=== PATIENT | female | born 1990 | race African-American/Black ===

== ENCOUNTER → 2016-09-06 | Outpatient (CLI) | payer MEDICAID ==
[~2016-09-06] MED LIST: IBUP800T23 PO; LOPE2 PO; ZOFR4TAB3 SL
== END ==
LOC: HPND 09:17
PROVIDERS: ATTEND Obstetrics & Gynecology
DX: O34.12 Maternal care for benign tumor of corpus uteri, second trimester (principal); Z36 Encounter for antenatal screening of mother; Z3A.27 27 weeks gestation of pregnancy
CPT/HCPCS: 76816

== ENCOUNTER → 2016-10-13 | Outpatient (CLI) | payer MEDICAID | LOC: HPND 09:53 | PROVIDERS: ATTEND Obstetrics & Gynecology | DX: O34.12 Maternal care for benign tumor of corpus uteri, second trimester (principal) | CPT/HCPCS: 76816 ==

== ENCOUNTER 2017-05-09 07:08 | Emergency (ER) | payer MEDICAID ==
[~2017-05-09] VITALS: Ht 160 cm; Wt 122.0 kg
[2017-05-09 07:10] VITALS: BP 128/87; PULSE 72; RESP 15; TEMP 98.4; O2SAT 99
--- NOTE | 2017-05-09 07:44 | PD ---
HPI Chief Complaint: Injury Time Seen by Provider: 07:22 Travel History International Travel<30 days: No Contact w/Intl Traveler<30days: No Traveled to known affect area: No History of Present Illness HPI 26-year-old female presents to emergency Department with complaint of right hand pain 3 weeks after injuring it after hitting it on a door. Reports numbness and tingling to the fingers in the beginning of the injury, but not now. Denies decreased range of motion, loss of sensation, decreased strength to the affected extremity and hand. Took Ibuprofen for symptom management when it first happened. Symptoms are mild in severity. Has no medical complaints. Allergies to penicillin. No other modifying factors or associated signs and symptoms. PFSH Past Medical History Medical History: Denies Significant Hx Diminished Hearing: No ?: Not LMP: 04/08 Past Surgical History Surgical History: No Previous Surgery Cholecystectomy: Yes Tonsillectomy: Yes Social History Alcohol Use: Yes (SOCIALLY) Tobacco Use: No Substance Use: No Allergies-Medications (Allergen,Severity, Reaction): Coded Allergies: penicillin G (Unverified Allergy, Unknown, HIVES, 05/09/17) Reported Meds & Prescriptions Reported Meds & Active Scripts Active Ibuprofen 800 Mg Tab 800 Mg PO Q6HR PRN Review of Systems Except as stated in HPI: all other systems reviewed are Neg Physical Exam Narrative GENERAL: Well-nourished, well-developed black female patient, in no acute distress SKIN: Warm and dry. HEAD: Atraumatic. Normocephalic. EYES: Pupils equal and round. No scleral icterus. No injection or drainage. ENT: Mucosa pink and moist. Airway patent. NECK: Trachea midline. CARDIOVASCULAR: Regular rate. RESPIRATORY: No accessory muscle use. GASTROINTESTINAL: Obese. MUSCULOSKELETAL: Right hand with tenderness on palpation over the metacarpal area of the third and fourth fingers; hand is without edema, ecchymosis, erythema. Right upper extremity is supple and non-tense with 2+ radial pulse and sensory intact. No obvious deformities. No clubbing. No cyanosis. NEUROLOGICAL: Awake and alert. Oriented 3. No obvious cranial nerve deficits. Motor grossly within normal limits. Normal speech. PSYCHIATRIC: Appropriate mood and affect; insight and judgment normal. Data Data Last Documented VS Vital Signs Date Time Temp Pulse Resp B/P (MAP) Pulse Ox O2 Delivery O2 Flow Rate FiO2 05/09/17 07:10 98.4 72 15 128/87 (101) 99 Orders Orders Hand, Complete ([id number]) (05/09/17 07:20) MDM Medical Decision Making Medical Screen Exam Complete: Yes Emergency Medical Condition: Yes Medical Record Reviewed: Yes Differential Diagnosis Hand sprain, hand fracture, hand contusion, hand injury Narrative Course 26-year-old female with right hand injury 3 weeks. I offered the patient pain medication in the ER and she declined. Right hand x-ray ordered. 0916: Right hand x-ray with no acute findings. I offered the patient an Brian bandage and she declined. Ibuprofen prescribed for home. Instructed patient to follow up with primary care provider. Patient verbalizes understanding and agreement with treatment plan. Patient is medically cleared and stable for discharge. Discussed reasons to return to the emergency department. Patient agrees with treatment plan. The patients vital signs are stable and the patient is stable for outpatient follow-up and treatment. Patient discharged home, stable and in no acute distress. Diagnosis Primary Impression: Injury of right hand Qualified Codes: S69.91XA - Unspecified injury of right wrist, hand and finger (s), initial encounter Referrals: [facility] Primary Care Physician Patient Instructions: General Instructions, Hand Sprain (ED) Departure Forms: Tests/Procedures, Work Release Enter return to work date: May 10, 2017 Additional Instructions: Tylenol or ibuprofen as directed and as needed to reduce pain Rest, ice, compress, and elevate extremity to decrease pain and inflammation Brian wrap for support Avoid aggravating activity; increase activity as tolerated Follow-up with primary care provider Return to the emergency department immediately with worsening symptoms Med/Other Pt SpecificInfo: Prescription(s) given Scripts Ibuprofen (Ibuprofen) 800 Mg Tab 800 MG PO Q6HR Y for PAIN, #30 TAB 0 Refills Prov: Sarah Perez 05/09/17 Disposition: 01 DISCHARGE HOME Condition: Stable Sarah Perez May 09, 2017 07:44
[2017-05-09] MEDS ORDERED: IBUP800T23 PO (07:59)
--- NOTE | 2017-05-09 09:12 | RADRPT ---
EXAM DATE/TIME: 05/09/2017 08:01 [facility] COMPARISON: No previous studies available for comparison. INDICATIONS : Pain over all knuckles x3 weeks from hitting wall. MEDICAL HISTORY : None. SURGICAL HISTORY : None. ENCOUNTER: Initial ACUITY: 3 weeks PAIN SCORE: 9/10 LOCATION: Right hand. FINDINGS: Three view examination of the right hand demonstrates no soft tissue swelling, dislocation, or fractu re. The carpal bones appear intact. The interphalangeal and metacarpophalangeal joints are intact. Bony mineralization is normal. CONCLUSION: 1. There is no evidence of acute fracture. Richard Mcgee MD on May 09, 2017 at 9:10 Board Certified Radiologist. This report was verified electronically.
== END 2017-05-09 09:29 | disposition home or self-care (01) ==
LOC: NEPK 07:08
DX: S69.91XA Unspecified injury of right wrist, hand and finger(s), initial encounter (principal); W23.0XXA Caught, crushed, jammed, or pinched between moving objects, initial encounter; Z88.0 Allergy status to penicillin
CPT/HCPCS: 73130; 99283

== ENCOUNTER 2017-07-12 17:23 | Observation (INO) | payer MEDICAID ==
[~2017-07-12] VITALS: Ht 160 cm; Wt 120.0 kg
[2017-07-12 17:23] VITALS: BP 121/81; PULSE 79; RESP 16; TEMP 99.1; O2SAT 99
[~2017-07-12 17:23] MED LIST changes: +IBUP1TAB7 PO; -IBUP800T23 PO; -LOPE2 PO; -ZOFR4TAB3 SL
[2017-07-12 19:41] LABS: BASOPHIL % 0.4 % (0.0-2.0); EOSINOPHIL # 0.1 TH/MM3 (0-0.4); EOSINOPHIL % 0.9 % (0.0-4.0); HEMATOCRIT 35.7 % (35.0-46.0); HEMO FLAGS DIFF FINAL; LYMPH % 34.9 % (9.0-44.0); LYMPHOCYTE # 2.5 TH/MM3 (1.0-4.8); MEAN CELL VOLUME 83.3 FL (80.0-100.0); MEAN CORPUSCULAR HEMOGLOBIN 26.5 PG (27.0-34.0); MEAN CORPUSCULAR HGB CONC 31.9 % (32.0-36.0); MONO % 7.3 % (0.0-8.0); NEUT % 56.5 % (16.0-70.0); PLATELET COUNT 335 TH/MM3 (150-450); RED BLOOD COUNT 4.28 MIL/MM3 (4.00-5.30); RED CELL DISTRIBUTION WIDTH 14.8 % (11.6-17.2)
[2017-07-12 19:45] LABS: BLOOD, URINE NEG (NEG); COMMENT (UR) CULT NOT INDICATED; CULTURE IF INDICATED CULT NOT INDICATED; GLUCOSE,URINE NEG (NEG); KETONE, URINE NEG (NEG); MUCUS URINE FEW /lpf (OCC); NITRITE,URINE NEG (NEG); PH, URINE 8.5 (5.0-8.5); SQUAMOUS EPITHELIAL CELL URINE 5 /hpf (0-5); URINE COLOR YELLOW (YELLW/STRAW)
[2017-07-12 19:55] LABS: ANION GAP 7 MEQ/L (5-15); AST (GOT) 182 U/L (15-37); BICARBONATE 27.8 MEQ/L (21.0-32.0); BLOOD UREA NITROGEN 9 MG/DL (7-18); CHLORIDE 104 MEQ/L (98-107); GLOMERULAR FILTRATION RATE 153 ML/MIN (>89); POTASSIUM 3.9 MEQ/L (3.5-5.1); SODIUM (NA) 139 MEQ/L (136-145)
[2017-07-12 19:56] LABS: ALT (GPT) 103 U/L (10-53)
[2017-07-12 19:59] LABS: ALKALINE PHOSPHATASE 180 U/L (45-117); TOTAL BILIRUBIN ADULT 1.5 MG/DL (0.2-1.0)
[2017-07-12] MEDS ORDERED: MORPHINE SULFATE 4 MG/ML INJ IV PUSH ONE (20:30)
--- NOTE | 2017-07-12 20:30 | PD ---
HPI Chief Complaint: Abdominal Pain Time Seen by Provider: 20:18 Travel History International Travel<30 days: No Contact w/Intl Traveler<30days: No Traveled to known affect area: No History of Present Illness HPI 26yo F with PSH of cholecystectomy in 2011 presents to the ED with c/o epigastric abdominal pain that started around 10am today. Had one episode of NBNB vomiting but no longer nauseous now. States pain is sharp, intermittent and radiates to mid back. Denies any fever, chest pain, sob, dysuria, hematuria , diarrhea, vaginal bleeding or discharge. PFSH Past Medical History Diminished Hearing: No ?: Not LMP: 06/18/17 Past Surgical History Cholecystectomy: Yes Tonsillectomy: Yes Social History Alcohol Use: Yes (SOCIALLY) Tobacco Use: No Substance Use: No Allergies-Medications (Allergen,Severity, Reaction): Coded Allergies: penicillin G (Unverified Allergy, Unknown, HIVES, 07/12/17) Reported Meds & Prescriptions Reported Meds & Active Scripts Active Review of Systems Except as stated in HPI: all other systems reviewed are Neg Physical Exam Narrative GENERAL: 26yo F in mild distress. SKIN: Focused skin assessment warm/dry. HEAD: Atraumatic. Normocephalic. EYES: Pupils equal and round. No scleral icterus. No injection or drainage. ENT: No nasal bleeding or discharge. Mucous membranes pink and moist. NECK: Trachea midline. No JVD. CARDIOVASCULAR: Regular rate and rhythm. No murmur appreciated. RESPIRATORY: No accessory muscle use. Clear to auscultation. Breath sounds equal bilaterally. GASTROINTESTINAL: Abdomen soft, +Epigastric ttp. No rebound tenderness or guarding. MUSCULOSKELETAL: No obvious deformities. No clubbing. No cyanosis. No edema. NEUROLOGICAL: Awake and alert. No obvious cranial nerve deficits. Motor grossly within normal limits. Normal speech. PSYCHIATRIC: Appropriate mood and affect; insight and judgment normal. Data Data Last Documented VS Vital Signs Date Time Temp Pulse Resp B/P (MAP) Pulse Ox O2 Delivery O2 Flow Rate FiO2 07/13/17 00:00 97.6 64 18 119/81 (94) 98 07/12/17 22:07 Room Air Orders Orders Complete Blood Count With Diff (07/12/17 17:47) Comprehensive Metabolic Panel (07/12/17 17:47) Lipase (07/12/17 17:47) Urinalysis - C+S If Indicated (07/12/17 17:47) Us Abdomen Gallbladder (07/12/17 ) NPO (07/12/17 20:30) Morphine Inj (Morphine Inj) (07/12/17 20:30) Consult Gastroenterology (07/12/17 ) Ed Urine Pregnancytest Poc (07/12/17 20:40) Admit To Inpatient (07/12/17 ) Vital Signs (Adult) Q4H (07/12/17 20:45) Activity Oob With Assistance (07/12/17 20:45) Automatic Quilling Machine Operator / Telemetry .CONTINUOUS (07/12/17 20:45) Diet Npo (07/13/17 Breakfast) Sodium Chlor 0.9% 1000 Ml Inj (Ns 1000 M (07/12/17 20:45) Sodium Chloride 0.9% Flush (Ns Flush) (07/12/17 20:45) Sodium Chloride 0.9% Flush (Ns Flush) (07/12/17 21:00) Ondansetron Inj (Zofran Inj) (07/12/17 20:45) Comprehensive Metabolic Panel (07/13/17 06:00) Complete Blood Count With Diff (07/13/17 06:00) Case Management Consult (07/12/17 20:45) Naloxone Inj (Narcan Inj) (07/12/17 20:45) Inpatient Certification (07/12/17 ) Morphine Inj (Morphine Inj) (07/12/17 20:45) Admit Order (Ed Use Only) (07/12/17 20:58) Patient Transfer (07/12/17 ) Place In Observation (07/13/17 ) Labs Laboratory Tests Test 07/12/17 18:40 07/12/17 18:50 Urine Color YELLOW Urine Turbidity HAZY Urine pH 8.5 Urine Specific [place] 1.027 Urine Protein 30 mg/dL Urine Glucose (UA) NEG mg/dL Urine Ketones NEG mg/dL Urine Occult Blood NEG Urine Nitrite NEG Urine Bilirubin NEG Urine Urobilinogen 2.0 MG/DL Urine Leukocyte Esterase NEG Urine RBC 2 /hpf Urine WBC 2 /hpf Urine Squamous Epithelial Cells 5 /hpf Urine Mucus FEW /lpf Microscopic Urinalysis Comment CULT NOT INDICATED White Blood Count 7.0 TH/MM3 Red Blood Count 4.28 MIL/MM3 Hemoglobin 11.4 GM/DL Hematocrit 35.7 % Mean Corpuscular Volume 83.3 FL Mean Corpuscular Hemoglobin 26.5 PG Mean Corpuscular Hemoglobin Concent 31.9 % Red Cell Distribution Width 14.8 % Platelet Count 335 TH/MM3 Mean Platelet Volume 8.5 FL Neutrophils (%) (Auto) 56.5 % Lymphocytes (%) (Auto) 34.9 % Monocytes (%) (Auto) 7.3 % Eosinophils (%) (Auto) 0.9 % Basophils (%) (Auto) 0.4 % Neutrophils # (Auto) 4.0 TH/MM3 Lymphocytes # (Auto) 2.5 TH/MM3 Monocytes # (Auto) 0.5 TH/MM3 Eosinophils # (Auto) 0.1 TH/MM3 Basophils # (Auto) 0.0 TH/MM3 CBC Comment DIFF FINAL Differential Comment Blood Urea Nitrogen 9 MG/DL Creatinine 0.58 MG/DL Random Glucose 93 MG/DL Total Protein 7.4 GM/DL Albumin 3.4 GM/DL Calcium Level 8.9 MG/DL Alkaline Phosphatase 180 U/L Aspartate Amino Transf (AST/SGOT) 182 U/L Alanine Aminotransferase (ALT/SGPT) 103 U/L Total Bilirubin 1.5 MG/DL Sodium Level 139 MEQ/L Potassium Level 3.9 MEQ/L Chloride Level 104 MEQ/L Carbon Dioxide Level 27.8 MEQ/L Anion Gap 7 MEQ/L Estimat Glomerular Filtration Rate 153 ML/MIN Lipase 118 U/L MDM Medical Decision Making Medical Screen Exam Complete: Yes Emergency Medical Condition: Yes Differential Diagnosis Choledocholithiasis vs. cholangitis vs. pancreatitis vs. gastritis Narrative Course 26yo F with epigastric abdominal pain that radiates to the back. States it feels like her gallstones but she had her gallbladder remove in 2011. Labs reviewed, no leukocytosis. Elevated bilirubin at 1.5, elevated AST/ALT 182/ 103. Alk phos elevated at 180. Lipase normal. UA negative. Discussed with Dr. Lorenzo who wants to keep her NPO. Recommends admission and also to obtain US and he will see the patient. Discussed with Dr. Yao and accepted pt to her service. Diagnosis Primary Impression: Transaminitis Admitting Information Admitting Physician Requests: Observation Scripts Ondansetron (Zofran) 8 Mg Tab 8 MG PO TID for Nausea/Vomiting, #30 TAB 0 Refills Prov: Grieper,Derrek M. DO 07/14/17 Angelica Agosto DO Jul 12, 2017 20:30
[2017-07-12] MEDS ORDERED: MORPHINE SULFATE 2 MG/ML INJ IV PUSH PRN (20:45)
[2017-07-12] MEDS ORDERED: NALOXONE HCL 0.4 MG/ML AMP IV PUSH PRN (20:45)
[2017-07-12] MEDS ORDERED: SODIUM CHLORIDE 0.9% FLUSH 10 ML FLUSH IV FLUSH PRN (20:45)
[2017-07-12] MEDS: ONDANSETRON HCL 4 MG/2 ML VIAL IVP PRN (20:55)
[2017-07-12] MEDS: SODIUM CHLORIDE 0.9% FLUSH 10 ML FLUSH IV FLUSH SCH (21:00)
[2017-07-12] MEDS: SODIUM CHLOR 0.9% 1000 ML INJ 1,000 ML IV SCH (21:01)
--- NOTE | 2017-07-12 22:00 | RADRPT ---
EXAM DATE/TIME: 07/12/2017 21:30 [facility] COMPARISON: No previous studies available for comparison. INDICATIONS : Right upper quadrant pain. MEDICAL HISTORY : . Right upper quadrant pain. SURGICAL HISTORY : Tonsillectomy. Cholecystectomy. ENCOUNTER: Initial ACUITY: 1 day PAIN SCORE: 2/10 LOCATION: Right upper quadrant MEASUREMENTS: LIVER: 17.8 cm length COMMON DUCT: 6 mm RIGHT KIDNEY: 11.1 x 6.7 x 4.8 cm FINDINGS: LIVER: Normal echotexture without focal lesion or ductal dilatation. COMMON DUCT: No intraluminal mass or stone visualized. GALLBLADDER: Contains no stones, demonstrates no wall thickening or pericholecystic fluid. PANCREAS: The visualized portions are within normal limits. RIGHT KIDNEY: No evidence of hydronephrosis, stone, or mass. CONCLUSION: 1. The common bile duct is at the upper range of normal in terms of caliber. Otherwise, unremarkable exam. Binu Navarro Jr., MD on July 12, 2017 at 21:56 Board Certified Radiologist. This report was verified electronically.
[2017-07-12 22:07] VITALS: BP 118/78; PULSE 80; RESP 18; O2SAT 98
--- NOTE | 2017-07-12 23:33 | HHI.HP ---
[facility] No Primary Care Physician Admission Diagnosis possible choledocholithiasis Diagnoses: Chief Complaint: Abdominal pain Travel History International Travel<30 Days: No Contact w/Intl Traveler <30 Da: No Traveled to Known Affected Are: No History of Present Illness 26-year-old female with no medical history presented to the ED with complaints of abdominal pain. Patient states the abdominal pain began today and is a 9 out of 10 sharp pain in her right upper quadrant that radiates to the back with associated vomiting. She states eating or drinking does make it worse, but the pain medicine that was given has helped. She denies any chest pain, shortness of breath, fever or chills Review of Systems Except as stated in HPI: all other systems reviewed are Neg Past Family Social History Past Medical History Denies any medical history Past Surgical History cholecystectomy Tonsillectomy Reported Medications Reported Meds & Active Scripts Active Allergies: Coded Allergies: penicillin G (Unverified Allergy, Unknown, HIVES, 07/12/17) Active Ordered Medications Current Medications Medications (Trade) Dose Ordered Sig/José Route Start Time Stop Time Status Last Admin Sodium Chloride 1,000 ml @ 100 mls/hr Q10H IV 07/12/17 20:45 07/12/17 21:01 (NS Flush) 2 ml UNSCH PRN IV FLUSH 07/12/17 20:45 (NS Flush) 2 ml BID IV FLUSH 07/12/17 21:00 (Zofran Inj) 4 mg Q6H PRN IVP 07/12/17 20:45 07/12/17 20:55 (Narcan Inj) 0.4 mg UNSCH PRN IV PUSH 07/12/17 20:45 (Morphine Inj) 2 mg Q3H PRN IV PUSH 07/12/17 20:45 Family History Maternal grandma: breast cancer Social History Tobacco use: Denies Alcohol use: Socially Illicit drug use: Marijuana Physical Exam Vital Signs Vital Signs Date Time Temp Pulse Resp B/P (MAP) Pulse Ox O2 Delivery O2 Flow Rate FiO2 07/12/17 22:07 80 18 118/78 (91) 98 Room Air 07/12/17 22:07 07/12/17 17:23 99.1 79 16 121/81 (94) 99 Room Air Physical Exam GENERAL: This is a well-nourished, obese patient, in no apparent distress. SKIN: No rashes, ecchymoses or lesions. Cool and dry. HEAD: Atraumatic. Normocephalic. EYES: Pupils equal round and reactive. Extraocular motions intact. ENT: Nose without bleeding, purulent drainage or septal hematoma. Airway patent. NECK: Trachea midline. No JVD CARDIOVASCULAR: Regular rate and rhythm without murmurs, gallops, or rubs. RESPIRATORY: Clear to auscultation. Breath sounds equal bilaterally. No wheezes , rales, or rhonchi. GASTROINTESTINAL: Abdomen soft, RUQ tenderness, nondistended. MUSCULOSKELETAL: Extremities without clubbing, cyanosis, or edema. No calf tenderness. NEUROLOGICAL: Awake and alert. Motor and sensory grossly within normal limits. Normal speech. Laboratory Laboratory Tests Test 07/12/17 18:40 07/12/17 18:50 Urine Color YELLOW Urine Turbidity HAZY Urine pH 8.5 Urine Specific [place] 1.027 Urine Protein 30 Urine Glucose (UA) NEG Urine Ketones NEG Urine Occult Blood NEG Urine Nitrite NEG Urine Bilirubin NEG Urine Urobilinogen 2.0 Urine Leukocyte Esterase NEG Urine RBC 2 Urine WBC 2 Urine Squamous Epithelial Cells 5 Urine Mucus FEW Microscopic Urinalysis Comment CULT NOT INDICATED White Blood Count 7.0 Red Blood Count 4.28 Hemoglobin 11.4 Hematocrit 35.7 Mean Corpuscular Volume 83.3 Mean Corpuscular Hemoglobin 26.5 Mean Corpuscular Hemoglobin Concent 31.9 Red Cell Distribution Width 14.8 Platelet Count 335 Mean Platelet Volume 8.5 Neutrophils (%) (Auto) 56.5 Lymphocytes (%) (Auto) 34.9 Monocytes (%) (Auto) 7.3 Eosinophils (%) (Auto) 0.9 Basophils (%) (Auto) 0.4 Neutrophils # (Auto) 4.0 Lymphocytes # (Auto) 2.5 Monocytes # (Auto) 0.5 Eosinophils # (Auto) 0.1 Basophils # (Auto) 0.0 CBC Comment DIFF FINAL Differential Comment Blood Urea Nitrogen 9 Creatinine 0.58 Random Glucose 93 Total Protein 7.4 Albumin 3.4 Calcium Level 8.9 Alkaline Phosphatase 180 Aspartate Amino Transf (AST/SGOT) 182 Alanine Aminotransferase (ALT/SGPT) 103 Total Bilirubin 1.5 Sodium Level 139 Potassium Level 3.9 Chloride Level 104 Carbon Dioxide Level 27.8 Anion Gap 7 Estimat Glomerular Filtration Rate 153 Lipase 118 Result Diagram: 07/12/17184907/12/171849 Imaging Last Impressions Gall Bladder Ultrasound 07/12/17 0000 Signed Impressions: Service Date/Time: Wednesday, July 12, 2017 21:30 - CONCLUSION: 1. The common bile duct is at the upper range of normal in terms of caliber. Otherwise , unremarkable exam. MD Clif Montgomery Jr. VTE Risk Assessment Clif VTE Risk Assessment: No/Low Risk (score <= 1) Caprini Risk Assessment Model Point Value = 1 Point Value = 2 Point Value = 3 Point Value = 5 Age 41-60 Minor surgery BMI > 25 kg/m2 Swollen legs Varicose veins or History of unexplained or recurrent spontaneous Oral contraceptives or hormone replacement Sepsis (< 1 month) Serious lung disease, including pneumonia (< 1 month) Abnormal pulmonary function Acute myocardial infarction Congestive heart failure (< 1 month) History of inflammatory bowel disease Medical patient at bed rest Age 61-74 Arthroscopic surgery Major open surgery (> 45 min) Laparoscopic surgery (> 45 min) Malignancy Confined to bed (> 72 hours) Immobilizing plaster cast Central venous access Age >= 75 History of VTE Family history of VTE Factor V Leiden Prothrombin [id number] Lupus anticoagulant Anticardiolipin antibodies Elevated serum homocysteine Heparin-induced thrombocytopenia Other congenital or acquired thrombophilia Stroke (< 1 month) Elective arthroplasty Hip, pelvis, or leg fracture Acute spinal cord injury (< 1 month) Prophylaxis Regimen Total Risk Factor Score Risk Level Prophylaxis Regimen 0-1 Low Early ambulation 2 Moderate Order ONE of the following: *Sequential Compression Device (SCD) *Heparin 5000 units SQ BID 3-4 Higher Order ONE of the following medications: *Heparin 5000 units SQ TID *Enoxaparin/Lovenox 40 mg SQ daily (WT < 150 kg, CrCl > 30 mL/min) *Enoxaparin/Lovenox 30 mg SQ daily (WT < 150 kg, CrCl > 10-29 mL/min) *Enoxaparin/Lovenox 30 mg SQ BID (WT < 150 kg, CrCl > 30 mL/min) AND/OR *Sequential Compression Device (SCD) 5 or more Highest Order ONE of the following medications: *Heparin 5000 units SQ TID (Preferred with Epidurals) *Enoxaparin/Lovenox 40 mg SQ daily (WT < 150 kg, CrCl > 30 mL/min) *Enoxaparin/Lovenox 30 mg SQ daily (WT < 150 kg, CrCl > 10-29 mL/min) *Enoxaparin/Lovenox 30 mg SQ BID (WT < 150 kg, CrCl > 30 mL/min) AND *Sequential Compression Device (SCD) Assessment and Plan Problem List: (1) Choledocholithiasis ICD Code: K80.50 - Calculus of bile duct without cholangitis or cholecystitis without obstruction (2) Transaminitis ICD Code: R74.0 - Nonspecific elevation of levels of transaminase and lactic acid dehydrogenase [LDH] Assessment and Plan 26-year-old female with no medical history presented to the ED with complaints of abdominal pain. Transaminitis , suspect Choledocholithiasis Gallbladder ultrasound reviewed and shows common bile duct is in the upper range of normal. AST: 182 ALT: 103 -Consult gastroenterology for recommendations, possible MRCP -Continue IVF -Nothing by mouth -Pain management with IV morphine DVT prophylaxis: SCDs Discussed Condition With Patient and RN Physician Certification 2 Midnight Certification Type: Admission for Inpatient Services Order for Inpatient Services The services are ordered in accordance with Medicare regulations or non- Medicare payer requirements, as applicable. In the case of services not specified as inpatient-only, they are appropriately provided as inpatient services in accordance with the 2-midnight benchmark. Estimated LOS (days): 2 days is the estimated time the patient will need to remain in the hospital, assuming treatment plan goals are met and no additional complications. Post-Hospital Plan: Delores Collazo Jul 12, 2017 23:33
[2017-07-13] VITALS (9 sets, daily range): BP systolic 100–119; BP diastolic 64–81; PULSE 60–75; RESP 15–24; TEMP 96.7–98.5; O2SAT 97–99
[2017-07-13] MEDS: SODIUM CHLOR 0.9% 1000 ML INJ 1,000 ML IV SCH ×2 (06:45→09:16)
[2017-07-13 08:46] LABS: AUTOMATED NEUTROPHIL # 2.3 TH/MM3 (1.8-7.7); BASOPHIL % 0.4 % (0.0-2.0); EOSINOPHIL # 0.1 TH/MM3 (0-0.4); EOSINOPHIL % 1.9 % (0.0-4.0); HEMATOCRIT 34.4 % (35.0-46.0); HEMO FLAGS DIFF FINAL; LYMPH % 44.6 % (9.0-44.0); LYMPHOCYTE # 2.3 TH/MM3 (1.0-4.8); MEAN CELL VOLUME 83.4 FL (80.0-100.0); MEAN CORPUSCULAR HEMOGLOBIN 26.9 PG (27.0-34.0); MEAN CORPUSCULAR HGB CONC 32.3 % (32.0-36.0); MONO % 9.5 % (0.0-8.0); NEUT % 43.6 % (16.0-70.0); PLATELET COUNT 291 TH/MM3 (150-450); RED BLOOD COUNT 4.12 MIL/MM3 (4.00-5.30); RED CELL DISTRIBUTION WIDTH 14.4 % (11.6-17.2); WHITE BLOOD COUNT 5.2 TH/MM3 (4.0-11.0)
[2017-07-13] MEDS: SODIUM CHLORIDE 0.9% FLUSH 10 ML FLUSH IV FLUSH SCH ×2 (09:00→20:25)
[2017-07-13 09:07] LABS: ANION GAP 7 MEQ/L (5-15); AST (GOT) 323 U/L (15-37); BICARBONATE 25.5 MEQ/L (21.0-32.0); BLOOD UREA NITROGEN 7 MG/DL (7-18); CHLORIDE 107 MEQ/L (98-107); GLOMERULAR FILTRATION RATE 150 ML/MIN (>89); POTASSIUM 3.9 MEQ/L (3.5-5.1); SODIUM (NA) 139 MEQ/L (136-145)
[2017-07-13 09:08] LABS: ALT (GPT) 202 U/L (10-53)
[2017-07-13] MEDS: ONDANSETRON HCL 4 MG/2 ML VIAL IVP PRN (09:08)
[2017-07-13 09:10] LABS: ALKALINE PHOSPHATASE 231 U/L (45-117); TOTAL BILIRUBIN ADULT 3.2 MG/DL (0.2-1.0)
--- NOTE | 2017-07-13 11:20 | RADRPT ---
EXAM DATE/TIME: 07/13/2017 10:17 [facility] COMPARISON: No previous studies available for comparison. INDICATIONS : Pain. MEDICAL HISTORY : None. SURGICAL HISTORY : Cholecystectomy. Tonsillectomy. ENCOUNTER: Initial ACUITY: 2 day PAIN SCORE: 4/10 LOCATION: Right upper quadrant TECHNIQUE: Multiplanar, multisequence magnetic resonance imaging of the abdomen was performed. High-resolution 3D dataset was utilized to reconstruct maximum-intensity projection (MIP) images. FINDINGS: INTRAHEPATIC BILE DUCTS: Within normal limits. No significant anatomical variant is present. EXTRAHEPATIC BILE DUCTS: The common bile duct measures 5.6 mm No stone or filling defect is identified. GALLBLADDER: Status post cholecystectomy LIVER: Normal size and signal intensity. No concerning liver lesion is identified on this non-contrast exam. PANCREAS: The main pancreatic duct is normal in size. There is no significant anatomical variant. Signal inte nsity is within normal limits. No mass is visualized on this non-contrast exam. OTHER: The remaining visualized structures demonstrate no acute abnormality on this non-contrast exam. CONCLUSION: 1. Status post cholecystectomy. 2. No evidence of intra-or extra hepatic biliary duct dilatation. 3. No evidence of choledocholithiasis. 4. No acute process. Spike Loza MD on July 13, 2017 at 11:16 Board Certified Radiologist. This report was verified electronically.
--- NOTE | 2017-07-13 11:23 | PD.CONS ---
HPI History of Present Illness This is a 26 year old female with hx gallstones s/p cholecystectomy who presented with abd pain that started yesterday. THe pain is in the epigastrium and radiates straight through to the back. she did have 1 episode of nausea and nonbloody emesis. SHe had similar pain when she had gallstones. Denies fever, diarrhea, blood in stool, dark tarry stool. Never had colonoscopy or EGD. (Ginger Abbasi) PFSH Past Medical History cholelithiasis Past Surgical History cholecystectomy Tonsillectomy (Ginger Abbasi) Coded Allergies: penicillin G (Unverified Allergy, Unknown, HIVES, 07/12/17) Family History Maternal grandma: breast cancer Social History Tobacco use: Denies Alcohol use: Socially Illicit drug use: Marijuana (Ginger Abbasi) Review of Systems Constitutional: DENIES: Fever Eyes: DENIES: Photosensitivity Ears, nose, mouth, throat: DENIES: Hearing loss Respiratory: DENIES: Hemoptysis Cardiovascular: DENIES: Chest pain Gastrointestinal: COMPLAINS OF: Abdominal pain, Nausea, Vomiting, DENIES: Black stools, Bloody stools, Constipation, Diarrhea, Hematemesis Genitourinary: DENIES: Hematuria Musculoskeletal: DENIES: Joint Swelling Integumentary: DENIES: Jaundice Hematologic/lymphatic: DENIES: Bruising Neurologic: DENIES: Abnormal gait Psychiatric: DENIES: Confusion (Ginger Abbasi) GI Exam Vitals I&O Vital Signs Date Time Temp Pulse Resp B/P (MAP) Pulse Ox O2 Delivery O2 Flow Rate FiO2 07/13/17 07:11 96.8 62 18 103/65 (78) 97 07/13/17 03:54 65 07/13/17 03:26 98.4 73 15 106/69 (81) 98 07/13/17 00:00 97.6 64 18 119/81 (94) 98 07/13/17 00:00 62 07/12/17 22:07 80 18 118/78 (91) 98 Room Air 07/12/17 22:07 07/12/17 17:23 99.1 79 16 121/81 (94) 99 Room Air Imaging Last Impressions Gall Bladder Ultrasound 07/12/17 0000 Signed Impressions: Service Date/Time: Wednesday, July 12, 2017 21:30 - CONCLUSION: 1. The common bile duct is at the upper range of normal in terms of caliber. Otherwise , unremarkable exam. Binu Navarro Jr., MD Laboratory Test 07/12/17 18:40 07/12/17 18:50 07/13/17 07:51 Urine Color YELLOW Urine Turbidity HAZY Urine pH 8.5 Urine Specific [place] 1.027 Urine Protein 30 mg/dL Urine Glucose (UA) NEG mg/dL Urine Ketones NEG mg/dL Urine Occult Blood NEG Urine Nitrite NEG Urine Bilirubin NEG Urine Urobilinogen 2.0 MG/DL Urine Leukocyte Esterase NEG Urine RBC 2 /hpf Urine WBC 2 /hpf Urine Squamous Epithelial Cells 5 /hpf Urine Mucus FEW /lpf Microscopic Urinalysis Comment CULT NOT INDICATED White Blood Count 7.0 TH/MM3 5.2 TH/MM3 Red Blood Count 4.28 MIL/MM3 4.12 MIL/MM3 Hemoglobin 11.4 GM/DL 11.1 GM/DL Hematocrit 35.7 % 34.4 % Mean Corpuscular Volume 83.3 FL 83.4 FL Mean Corpuscular Hemoglobin 26.5 PG 26.9 PG Mean Corpuscular Hemoglobin Concent 31.9 % 32.3 % Red Cell Distribution Width 14.8 % 14.4 % Platelet Count 335 TH/MM3 291 TH/MM3 Mean Platelet Volume 8.5 FL 8.5 FL Neutrophils (%) (Auto) 56.5 % 43.6 % Lymphocytes (%) (Auto) 34.9 % 44.6 % Monocytes (%) (Auto) 7.3 % 9.5 % Eosinophils (%) (Auto) 0.9 % 1.9 % Basophils (%) (Auto) 0.4 % 0.4 % Neutrophils # (Auto) 4.0 TH/MM3 2.3 TH/MM3 Lymphocytes # (Auto) 2.5 TH/MM3 2.3 TH/MM3 Monocytes # (Auto) 0.5 TH/MM3 0.5 TH/MM3 Eosinophils # (Auto) 0.1 TH/MM3 0.1 TH/MM3 Basophils # (Auto) 0.0 TH/MM3 0.0 TH/MM3 CBC Comment DIFF FINAL DIFF FINAL Differential Comment Blood Urea Nitrogen 9 MG/DL 7 MG/DL Creatinine 0.58 MG/DL 0.59 MG/DL Random Glucose 93 MG/DL 98 MG/DL Total Protein 7.4 GM/DL 6.8 GM/DL Albumin 3.4 GM/DL 3.2 GM/DL Calcium Level 8.9 MG/DL 8.8 MG/DL Alkaline Phosphatase 180 U/L 231 U/L Aspartate Amino Transf (AST/SGOT) 182 U/L 323 U/L Alanine Aminotransferase (ALT/SGPT) 103 U/L 202 U/L Total Bilirubin 1.5 MG/DL 3.2 MG/DL Sodium Level 139 MEQ/L 139 MEQ/L Potassium Level 3.9 MEQ/L 3.9 MEQ/L Chloride Level 104 MEQ/L 107 MEQ/L Carbon Dioxide Level 27.8 MEQ/L 25.5 MEQ/L Anion Gap 7 MEQ/L 7 MEQ/L Estimat Glomerular Filtration Rate 153 ML/MIN 150 ML/MIN Lipase 118 U/L Physical Examination HEENT: PERRL; normocephalic; atraumatic; no jaundice. CHEST: CTA CARDIAC: RRR ABDOMEN: Soft, obese, nontender; no hepatosplenomegaly; bowel sounds are present in all four quadrants. EXTREMITIES: No clubbing, cyanosis, or edema. SKIN: Normal; no rash; no jaundice. 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 (Ginger Abbasi) Assessment and Plan Plan ASSESSMENT - elev LFTs, abd pain - epigastric pain radiating to back, LFTs elevated obstructive pattern. US showed CBD dilated upper limits normal, pt is s/p cholecystectomy. MRCP neg. She says her pain is somewhat improved from yesterday. She could have passed stone. will monitor LFTs, get liver w/u to r/o other cause elevation PLAN - liver w/u - monitor LFTs - clear liquid diet - supportive care - further recs to follow This pt seen by myself and Dr Baer and this note is written on his behalf (Ginger Abbasi) Plan Patient was seen and examined, agree with above note, most likely passed a stone , pain improved significantly, no nausea or vomiting now, we have to wait and recheck liver function tests tomorrow, if elevated we might need to consider ERCP (Casey Baer MD) Ginger Abbasi Jul 13, 2017 11:23 Casey Baer MD Jul 13, 2017 14:33
--- NOTE | 2017-07-13 16:09 | HHI.PR ---
Subjective Remarks 26-year-old female with no medical history presented to the ED with complaints of abdominal pain. Patient states the abdominal pain began today and is a 9 out of 10 sharp pain in her right upper quadrant that radiates to the back with associated vomiting. She states eating or drinking does make it worse, but the pain medicine that was given has helped. She denies any chest pain, shortness of breath, fever or chills 11-9 SEEN BY GI AND HAD MRCP IF LABS BETTER AND NO PAIN HOPEFULLY HOME TOMORROW DW RN AND PT SEEN WITH FEMALE RN WOOLEN SUITING SHRINKER IN THE ROOM AM LABS Objective Vitals Vital Signs Date Time Temp Pulse Resp B/P (MAP) Pulse Ox O2 Delivery O2 Flow Rate FiO2 07/13/17 11:40 96.7 68 21 103/70 (81) 99 07/13/17 07:11 96.8 62 18 103/65 (78) 97 07/13/17 03:54 65 07/13/17 03:26 98.4 73 15 106/69 (81) 98 07/13/17 00:00 97.6 64 18 119/81 (94) 98 07/13/17 00:00 62 07/12/17 22:07 80 18 118/78 (91) 98 Room Air 07/12/17 22:07 07/12/17 17:23 99.1 79 16 121/81 (94) 99 Room Air Result Diagram: 07/13/17 0751 07/13/17 0751 Other Results Laboratory Tests Test 07/12/17 18:40 07/12/17 18:50 07/13/17 07:51 Urine Color YELLOW Urine Turbidity HAZY Urine pH 8.[address] [place] 1.027 Urine Protein 30 mg/dL Urine Glucose (UA) NEG mg/dL Urine Ketones NEG mg/dL Urine Occult Blood NEG Urine Nitrite NEG Urine Bilirubin NEG Urine Urobilinogen 2.0 MG/DL Urine Leukocyte Esterase NEG Urine RBC 2 /hpf Urine WBC 2 /hpf Urine Squamous Epithelial Cells 5 /hpf Urine Mucus FEW /lpf Microscopic Urinalysis Comment CULT NOT INDICATED White Blood Count 7.0 TH/MM3 5.2 TH/MM3 Red Blood Count 4.28 MIL/MM3 4.12 MIL/MM3 Hemoglobin 11.4 GM/DL 11.1 GM/DL Hematocrit 35.7 % 34.4 % Mean Corpuscular Volume 83.3 FL 83.4 FL Mean Corpuscular Hemoglobin 26.5 PG 26.9 PG Mean Corpuscular Hemoglobin Concent 31.9 % 32.3 % Red Cell Distribution Width 14.8 % 14.4 % Platelet Count 335 TH/MM3 291 TH/MM3 Mean Platelet Volume 8.5 FL 8.5 FL Neutrophils (%) (Auto) 56.5 % 43.6 % Lymphocytes (%) (Auto) 34.9 % 44.6 % Monocytes (%) (Auto) 7.3 % 9.5 % Eosinophils (%) (Auto) 0.9 % 1.9 % Basophils (%) (Auto) 0.4 % 0.4 % Neutrophils # (Auto) 4.0 TH/MM3 2.3 TH/MM3 Lymphocytes # (Auto) 2.5 TH/MM3 2.3 TH/MM3 Monocytes # (Auto) 0.5 TH/MM3 0.5 TH/MM3 Eosinophils # (Auto) 0.1 TH/MM3 0.1 TH/MM3 Basophils # (Auto) 0.0 TH/MM3 0.0 TH/MM3 CBC Comment DIFF FINAL DIFF FINAL Differential Comment Blood Urea Nitrogen 9 MG/DL 7 MG/DL Creatinine 0.58 MG/DL 0.59 MG/DL Random Glucose 93 MG/DL 98 MG/DL Total Protein 7.4 GM/DL 6.8 GM/DL Albumin 3.4 GM/DL 3.2 GM/DL Calcium Level 8.9 MG/DL 8.8 MG/DL Alkaline Phosphatase 180 U/L 231 U/L Aspartate Amino Transf (AST/SGOT) 182 U/L 323 U/L Alanine Aminotransferase (ALT/SGPT) 103 U/L 202 U/L Total Bilirubin 1.5 MG/DL 3.2 MG/DL Sodium Level 139 MEQ/L 139 MEQ/L Potassium Level 3.9 MEQ/L 3.9 MEQ/L Chloride Level 104 MEQ/L 107 MEQ/L Carbon Dioxide Level 27.8 MEQ/L 25.5 MEQ/L Anion Gap 7 MEQ/L 7 MEQ/L Estimat Glomerular Filtration Rate 153 ML/MIN 150 ML/MIN Lipase 118 U/L Imaging Last Impressions Cholangiopancreatography MRI 07/13/17 0000 Signed Impressions: Service Date/Time: July 10:17 - CONCLUSION: 1. Status post cholecystectomy. 2. No evidence of intra-or extra hepatic biliary duct dilatation. 3. No evidence of choledocholithiasis. 4. No acute process. Spike Loza MD Gall Bladder Ultrasound 07/12/17 0000 Signed Impressions: Service Date/Time: Wednesday, July 12, 2017 21:30 - CONCLUSION: 1. The common bile duct is at the upper range of normal in terms of caliber. Otherwise , unremarkable exam. Binu Navarro Jr., MD Objective Remarks GENERAL: AWAKE ALERT AND ORIENTED TALKATIVE AND COOPERATIVE SKIN: Warm and dry. MULTIPLE TATTOOS HEAD: Atraumatic. Normocephalic. EYES: Pupils equal and round. No scleral icterus. No injection or drainage. EOMI ENT: No nasal bleeding or discharge. Mucous membranes pink and moist. TONGUE MIDLINE NECK: Trachea midline. No JVD. SUPPLE CARDIOVASCULAR: Regular rate and rhythm. S1, S2 NO S3 OR S4 RESPIRATORY: No accessory muscle use. Clear to auscultation. Breath sounds equal bilaterally. GASTROINTESTINAL: Abdomen soft, non-tender, nondistended. Hepatic and splenic margins not palpable. OBESE MUSCULOSKELETAL: Extremities without clubbing, cyanosis, or edema. No obvious deformities. NEUROLOGICAL: Awake and alert. No obvious cranial nerve deficits. Motor grossly within normal limits. Five out of 5 muscle strength in the arms and legs. Normal speech. PSYCHIATRIC: Appropriate mood and affect; insight and judgment normal. Medications and IVs Current Medications Morphine Sulfate (Morphine Inj) 4 mg ONCE ONCE IV PUSH Last administered on 20:54; Start 07/12/17 at 20:30; Stop 07/12/17 at 20:31; Status DC Sodium Chloride 1,000 ml @ 100 mls/hr Q10H IV Last administered on 07/13/17 09:16; Start 07/12/17 at 20:45 Sodium Chloride (NS Flush) 2 ml UNSCH PRN IV FLUSH FLUSH AFTER USING IV ACCESS ; Start 07/12/17 at 20:45 Sodium Chloride (NS Flush) 2 ml BID IV FLUSH ; Start 07/12/17 at 21:00 Ondansetron HCl (Zofran Inj) 4 mg Q6H PRN IVP NAUSEA OR VOMITING Last administered on 07/13/17 09:08; Start 07/12/17 at 20:45 Naloxone HCl (Narcan Inj) 0.4 mg UNSCH PRN IV PUSH SEE LABEL COMMENTS; Start 07/12/17 at 20:45 Morphine Sulfate (Morphine Inj) 2 mg Q3H PRN IV PUSH pain >5 Last administered on 07/13/17t 09:12; Start 07/12/17 at 20:45 A/P Problem List: (1) Choledocholithiasis ICD Code: K80.50 - Calculus of bile duct without cholangitis or cholecystitis without obstruction (2) Transaminitis ICD Code: R74.0 - Nonspecific elevation of levels of transaminase and lactic acid dehydrogenase [LDH] Assessment and Plan 26-year-old female with no medical history presented to the ED with complaints of abdominal pain. Transaminitis , suspect Choledocholithiasis Gallbladder ultrasound reviewed and shows common bile duct is in the upper range of normal. AST: 182 ALT: 103 -Consult gastroenterology for recommendations, MRCP -Continue IVF -Nothing by mouth -Pain management with IV morphine OBESE WT LOSS RECOMMENDED AM LABS, IF STABLE POSSIBLE DC TOMORROW DVT prophylaxis: SCDs Discharge Planning HOME TOMORROW IF CLEARED BY Derrek Calles DO Jul 13, 2017 16:09
[2017-07-14 00:13] VITALS: BP 91/55; PULSE 67; RESP 16; TEMP 98.5; O2SAT 99
[2017-07-14] MEDS: SODIUM CHLOR 0.9% 1000 ML INJ 1,000 ML IV SCH ×2 (02:45→12:45)
[2017-07-14 03:35] VITALS: BP 129/74; PULSE 72; RESP 17; TEMP 98.3; O2SAT 99
[2017-07-14 07:07] LABS: AUTOMATED NEUTROPHIL # 2.7 TH/MM3 (1.8-7.7); BASOPHIL % 0.5 % (0.0-2.0); EOSINOPHIL # 0.2 TH/MM3 (0-0.4); EOSINOPHIL % 2.5 % (0.0-4.0); HEMO FLAGS DIFF FINAL; LYMPH % 45.6 % (9.0-44.0); LYMPHOCYTE # 2.9 TH/MM3 (1.0-4.8); MEAN CELL VOLUME 82.7 FL (80.0-100.0); MEAN CORPUSCULAR HEMOGLOBIN 27.6 PG (27.0-34.0); MEAN CORPUSCULAR HGB CONC 33.3 % (32.0-36.0); MONO % 8.4 % (0.0-8.0); PLATELET COUNT 296 TH/MM3 (150-450); RED BLOOD COUNT 3.99 MIL/MM3 (4.00-5.30); RED CELL DISTRIBUTION WIDTH 14.6 % (11.6-17.2); WHITE BLOOD COUNT 6.4 TH/MM3 (4.0-11.0)
[2017-07-14 07:37] LABS: AMYLASE 40 U/L (25-115); ANION GAP 9 MEQ/L (5-15); AST (GOT) 192 U/L (15-37); BICARBONATE 23.8 MEQ/L (21.0-32.0); BLOOD UREA NITROGEN 5 MG/DL (7-18); CHLORIDE 106 MEQ/L (98-107); GLOMERULAR FILTRATION RATE 145 ML/MIN (>89); MAGNESIUM 1.8 MG/DL (1.5-2.5); POTASSIUM 3.7 MEQ/L (3.5-5.1); SODIUM (NA) 139 MEQ/L (136-145)
[2017-07-14 07:49] LABS: ALKALINE PHOSPHATASE 265 U/L (45-117); ALT (GPT) 232 U/L (10-53); FREE T4 0.96 NG/DL (0.76-1.46); TOTAL BILIRUBIN ADULT 1.6 MG/DL (0.2-1.0); TRANSFERRIN IRON PROFILE 243 MG/DL (200-360)
[2017-07-14 08:06] VITALS: BP 116/72; PULSE 64; RESP 16; TEMP 99; O2SAT 99
[2017-07-14] MEDS: SODIUM CHLORIDE 0.9% FLUSH 10 ML FLUSH IV FLUSH SCH (09:00)
[2017-07-14 11:54] VITALS: BP 133/100; PULSE 73; RESP 16; TEMP 99.5; O2SAT 99
--- NOTE | 2017-07-14 12:18 | HHI.GIFU ---
Subjective Remarks Doing well and asymptomatic now, requesting more food. Objective Vitals I&O Vital Signs Date Time Temp Pulse Resp B/P (MAP) Pulse Ox O2 Delivery O2 Flow Rate FiO2 07/14/17 11:54 99.5 73 16 133/100 (111) 99 07/14/17 08:06 99.0 64 16 116/72 (87) 99 07/14/17 03:35 98.3 72 17 129/74 (92) 99 07/14/17 00:13 98.5 67 16 91/55 (67) 99 07/13/17 21:17 98.5 63 17 100/64 (76) 97 07/13/17 16:18 97.1 75 24 108/64 (79) 98 07/13/17 12:20 60 Laboratory Laboratory Tests Test 07/14/17 06:30 White Blood Count 6.4 Red Blood Count 3.99 Hemoglobin 11.0 Hematocrit 33.0 Mean Corpuscular Volume 82.7 Mean Corpuscular Hemoglobin 27.6 Mean Corpuscular Hemoglobin Concent 33.3 Red Cell Distribution Width 14.6 Platelet Count 296 Mean Platelet Volume 8.5 Neutrophils (%) (Auto) 43.0 Lymphocytes (%) (Auto) 45.6 Monocytes (%) (Auto) 8.4 Eosinophils (%) (Auto) 2.5 Basophils (%) (Auto) 0.5 Neutrophils # (Auto) 2.7 Lymphocytes # (Auto) 2.9 Monocytes # (Auto) 0.5 Eosinophils # (Auto) 0.2 Basophils # (Auto) 0.0 CBC Comment DIFF FINAL Differential Comment Blood Urea Nitrogen 5 Creatinine 0.61 Random Glucose 94 Total Protein 7.1 Albumin 3.0 Calcium Level 8.3 Phosphorus Level 2.5 Magnesium Level 1.8 Alkaline Phosphatase 265 Aspartate Amino Transf (AST/SGOT) 192 Alanine Aminotransferase (ALT/SGPT) 232 Total Bilirubin 1.6 Sodium Level 139 Potassium Level 3.7 Chloride Level 106 Carbon Dioxide Level 23.8 Anion Gap 9 Estimat Glomerular Filtration Rate 145 Iron Level 97 Total Iron Binding Capacity 340 Percent Iron Saturation 28.5 Amylase Level 40 Lipase 85 Free Thyroxine 0.96 Thyroid Stimulating Hormone 3rd Gen 1.400 Physical Exam HEENT: Pupils round and reactive to light; normocephalic; atraumatic; no jaundice. Throat is clear. NECK: Neck is supple, no JVD, no lymphadenopathy. CHEST: Chest is clear to auscultation and percussion. CARDIAC: Regular rate and rhythm with no murmur gallop or rubs. ABDOMEN: Soft, nondistended, nontender; no hepatosplenomegaly; bowel sounds are present in all four quadrants. EXTREMITIES: No clubbing, cyanosis, or edema. SKIN: Normal; no rash; no jaundice. 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 Assessment and Plan Plan ASSESSMENT - Elev LFTs, abd pain - epigastric pain radiating to back, LFTs elevated obstructive pattern. US showed CBD dilated upper limits normal, pt is s/p cholecystectomy. MRCP neg. She says her pain resolved. will monitor LFTs, get liver w/u to r/o other cause elevation PLAN - Monitor LFTs - KEILA - Supportive care - Further recs to follow Eusebia Lorenzo MD Jul 14, 2017 12:18
[2017-07-14 12:45] LABS: ANA SCREEN NEG (NEG)
--- NOTE | 2017-07-14 13:14 | HHI.PR ---
Subjective Remarks 26-year-old female with no medical history presented to the ED with complaints of abdominal pain. Patient states the abdominal pain began today and is a 9 out of 10 sharp pain in her right upper quadrant that radiates to the back with associated vomiting. She states eating or drinking does make it worse, but the pain medicine that was given has helped. 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 AM LABS 11-10 if diet is tolerated dc to home NOT TAKING PAIN MEDS DC TO HOME AFTER LUNCH Objective Vitals Vital Signs Date Time Temp Pulse Resp B/P (MAP) Pulse Ox O2 Delivery O2 Flow Rate FiO2 07/14/17 11:54 99.5 73 16 133/100 (111) 99 07/14/17 08:06 99.0 64 16 116/72 (87) 99 07/14/17 03:35 98.3 72 17 129/74 (92) 99 07/14/17 00:13 98.5 67 16 91/55 (67) 99 07/13/17 21:17 98.5 63 17 100/64 (76) 97 07/13/17 16:18 97.1 75 24 108/64 (79) 98 Result Diagram: 07/14/17 0630 07/14/17 0630 Other Results Laboratory Tests Test 07/12/17 18:40 07/12/17 18:50 07/13/17 07:51 07/14/17 06:30 Urine Color YELLOW Urine Turbidity HAZY Urine pH 8.5 Urine Specific [place] 1.027 Urine Protein 30 mg/dL Urine Glucose (UA) NEG mg/dL Urine Ketones NEG mg/dL Urine Occult Blood NEG Urine Nitrite NEG Urine Bilirubin NEG Urine Urobilinogen 2.0 MG/DL Urine Leukocyte Esterase NEG Urine RBC 2 /hpf Urine WBC 2 /hpf Urine Squamous Epithelial Cells 5 /hpf Urine Mucus FEW /lpf Microscopic Urinalysis Comment CULT NOT INDICATED White Blood Count 7.0 TH/MM3 5.2 TH/MM3 6.4 TH/MM3 Red Blood Count 4.28 MIL/MM3 4.12 MIL/MM3 3.99 MIL/MM3 Hemoglobin 11.4 GM/DL 11.1 GM/DL 11.0 GM/DL Hematocrit 35.7 % 34.4 % 33.0 % Mean Corpuscular Volume 83.3 FL 83.4 FL 82.7 FL Mean Corpuscular Hemoglobin 26.5 PG 26.9 PG 27.6 PG Mean Corpuscular Hemoglobin Concent 31.9 % 32.3 % 33.3 % Red Cell Distribution Width 14.8 % 14.4 % 14.6 % Platelet Count 335 TH/MM3 291 TH/MM3 296 TH/MM3 Mean Platelet Volume 8.5 FL 8.5 FL 8.5 FL Neutrophils (%) (Auto) 56.5 % 43.6 % 43.0 % Lymphocytes (%) (Auto) 34.9 % 44.6 % 45.6 % Monocytes (%) (Auto) 7.3 % 9.5 % 8.4 % Eosinophils (%) (Auto) 0.9 % 1.9 % 2.5 % Basophils (%) (Auto) 0.4 % 0.4 % 0.5 % Neutrophils # (Auto) 4.0 TH/MM3 2.3 TH/MM3 2.7 TH/MM3 Lymphocytes # (Auto) 2.5 TH/MM3 2.3 TH/MM3 2.9 TH/MM3 Monocytes # (Auto) 0.5 TH/MM3 0.5 TH/MM3 0.5 TH/MM3 Eosinophils # (Auto) 0.1 TH/MM3 0.1 TH/MM3 0.2 TH/MM3 Basophils # (Auto) 0.0 TH/MM3 0.0 TH/MM3 0.0 TH/MM3 CBC Comment DIFF FINAL DIFF FINAL DIFF FINAL Differential Comment Blood Urea Nitrogen 9 MG/DL 7 MG/DL 5 MG/DL Creatinine 0.58 MG/DL 0.59 MG/DL 0.61 MG/DL Random Glucose 93 MG/DL 98 MG/DL 94 MG/DL Total Protein 7.4 GM/DL 6.8 GM/DL 7.1 GM/DL Albumin 3.4 GM/DL 3.2 GM/DL 3.0 GM/DL Calcium Level 8.9 MG/DL 8.8 MG/DL 8.3 MG/DL Alkaline Phosphatase 180 U/L 231 U/L 265 U/L Aspartate Amino Transf (AST/SGOT) 182 U/L 323 U/L 192 U/L Alanine Aminotransferase (ALT/SGPT) 103 U/L 202 U/L 232 U/L Total Bilirubin 1.5 MG/DL 3.2 MG/DL 1.6 MG/DL Sodium Level 139 MEQ/L 139 MEQ/L 139 MEQ/L Potassium Level 3.9 MEQ/L 3.9 MEQ/L 3.7 MEQ/L Chloride Level 104 MEQ/L 107 MEQ/L 106 MEQ/L Carbon Dioxide Level 27.8 MEQ/L 25.5 MEQ/L 23.8 MEQ/L Anion Gap 7 MEQ/L 7 MEQ/L 9 MEQ/L Estimat Glomerular Filtration Rate 153 ML/MIN 150 ML/MIN 145 ML/MIN Lipase 118 U/L 85 U/L Phosphorus Level 2.5 MG/DL Magnesium Level 1.8 MG/DL Iron Level 97 MCG/DL Total Iron Binding Capacity 340 MCG/DL Percent Iron Saturation 28.5 % Amylase Level 40 U/L Free Thyroxine 0.96 NG/DL Thyroid Stimulating Hormone 3rd Gen 1.400 uIU/ML Anti-Nuclear Antibody Screen NEG Imaging Last Impressions Cholangiopancreatography MRI 07/13/17 0000 Signed Impressions: Service Date/Time: July 10:17 - CONCLUSION: 1. Status post cholecystectomy. 2. No evidence of intra-or extra hepatic biliary duct dilatation. 3. No evidence of choledocholithiasis. 4. No acute process. Spike Loza MD Gall Bladder Ultrasound 07/12/17 0000 Signed Impressions: Service Date/Time: Wednesday, July 12, 2017 21:30 - CONCLUSION: 1. The common bile duct is at the upper range of normal in terms of caliber. Otherwise , unremarkable exam. Binu Navarro Jr., MD Objective Remarks GENERAL: AWAKE ALERT AND ORIENTED TALKATIVE AND COOPERATIVE SKIN: Warm and dry. MULTIPLE TATTOOS HEAD: Atraumatic. Normocephalic. EYES: Pupils equal and round. No scleral icterus. No injection or drainage. EOMI ENT: No nasal bleeding or discharge. Mucous membranes pink and moist. TONGUE MIDLINE NECK: Trachea midline. No JVD. SUPPLE CARDIOVASCULAR: Regular rate and rhythm. S1, S2 NO S3 OR S4 RESPIRATORY: No accessory muscle use. Clear to auscultation. Breath sounds equal bilaterally. GASTROINTESTINAL: Abdomen soft, non-tender, nondistended. Hepatic and splenic margins not palpable. OBESE MUSCULOSKELETAL: Extremities without clubbing, cyanosis, or edema. No obvious deformities. NEUROLOGICAL: Awake and alert. No obvious cranial nerve deficits. Motor grossly within normal limits. Five out of 5 muscle strength in the arms and legs. Normal speech. PSYCHIATRIC: Appropriate mood and affect; insight and judgment normal. Medications and IVs Current Medications Morphine Sulfate (Morphine Inj) 4 mg ONCE ONCE IV PUSH Last administered on 20:54; Start 07/12/17 at 20:30; Stop 07/12/17 at 20:31; Status DC Sodium Chloride 1,000 ml @ 100 mls/hr Q10H IV Last administered on 07/14/17 02:45; Start 07/12/17 at 20:45 Sodium Chloride (NS Flush) 2 ml UNSCH PRN IV FLUSH FLUSH AFTER USING IV ACCESS ; Start 07/12/17 at 20:45 Sodium Chloride (NS Flush) 2 ml BID IV FLUSH Last administered on 07/13/17 20: 25; Start 07/12/17 at 21:00 Ondansetron HCl (Zofran Inj) 4 mg Q6H PRN IVP NAUSEA OR VOMITING Last administered on 07/13/17 09:08; Start 07/12/17 at 20:45 Naloxone HCl (Narcan Inj) 0.4 mg UNSCH PRN IV PUSH SEE LABEL COMMENTS; Start 07/12/17 at 20:45 Morphine Sulfate (Morphine Inj) 2 mg Q3H PRN IV PUSH pain >5 Last administered on 07/13/17 09:12; Start 07/12/17 at 20:45 Urinary Catheter: No Vascular Central Line Catheter: No A/P Problem List: (1) Choledocholithiasis ICD Code: K80.50 - Calculus of bile duct without cholangitis or cholecystitis without obstruction (2) Transaminitis ICD Code: R74.0 - Nonspecific elevation of levels of transaminase and lactic acid dehydrogenase [LDH] Assessment and Plan 26-year-old female with no medical history presented to the ED with complaints of abdominal pain. Transaminitis , suspect Choledocholithiasis Gallbladder ultrasound reviewed and shows common bile duct is in the upper range of normal. AST: 182 ALT: 103 -Consult gastroenterology for recommendations, MRCP -Continue IVF -Nothing by mouth -Pain management with IV morphine OBESE WT LOSS RECOMMENDED AM LABS, IF STABLE POSSIBLE DC TOMORROW DVT prophylaxis: SCDs Discharge Planning HOME TODAY IF TOLERATES A DIET Derrek Morrissey DO Jul 14, 2017 13:14
[2017-07-14] MEDS ORDERED: ZOFR8TAB PO (13:16)
--- NOTE | 2017-07-14 13:21 | HHI.DS ---
Discharge Summary Admission Date Jul 13, 2017 at 01:32 Discharge Date: Jul 14, 2017 Admitting Diagnosis possible choledocholithiasis (1) Choledocholithiasis ICD Code: K80.50 - Calculus of bile duct without cholangitis or cholecystitis without obstruction Diagnosis: Principal (2) Transaminitis ICD Code: R74.0 - Nonspecific elevation of levels of transaminase and lactic acid dehydrogenase [LDH] Diagnosis: Principal Procedures NONE Brief History - From Admission 26-year-old female with no medical history presented to the ED with complaints of abdominal pain. Patient states the abdominal pain began today and is a 9 out of 10 sharp pain in her right upper quadrant that radiates to the back with associated vomiting. She states eating or drinking does make it worse, but the pain medicine that was given has helped. She denies any chest pain, shortness of breath, fever or chills CBC/BMP: 07/14/17 0630 07/14/17 0630 Significant Findings Laboratory Tests Test 07/12/17 18:40 07/12/17 18:50 07/13/17 07:51 07/14/17 06:30 Urine Turbidity HAZY (CLEAR) Urine Protein 30 mg/dL (NEG-TRACE) Urine Mucus FEW /lpf (OCC) Hemoglobin 11.4 GM/DL (11.6-15.3) 11.1 GM/DL (11.6-15.3) 11.0 GM/DL (11.6-15.3) Mean Corpuscular Hemoglobin 26.5 PG (27.0-34.0) 26.9 PG (27.0-34.0) Mean Corpuscular Hemoglobin Concent 31.9 % (32.0-36.0) Alkaline Phosphatase 180 U/L (45-117) 231 U/L (45-117) 265 U/L (45-117) Aspartate Amino Transf (AST/SGOT) 182 U/L (15-37) 323 U/L (15-37) 192 U/L (15-37) Alanine Aminotransferase (ALT/SGPT) 103 U/L (10-53) 202 U/L (10-53) 232 U/L (10-53) Total Bilirubin 1.5 MG/DL (0.2-1.0) 3.2 MG/DL (0.2-1.0) 1.6 MG/DL (0.2-1.0) Hematocrit 34.4 % (35.0-46.0) 33.0 % (35.0-46.0) Lymphocytes (%) (Auto) 44.6 % (9.0-44.0) 45.6 % (9.0-44.0) Monocytes (%) (Auto) 9.5 % (0.0-8.0) 8.4 % (0.0-8.0) Albumin 3.2 GM/DL (3.4-5.0) 3.0 GM/DL (3.4-5.0) Red Blood Count 3.99 MIL/MM3 (4.00-5.30) Blood Urea Nitrogen 5 MG/DL (7-18) Calcium Level 8.3 MG/DL (8.5-10.1) Imaging Last Impressions Cholangiopancreatography MRI 07/13/17 0000 Signed Impressions: Service Date/Time: July 10:17 - CONCLUSION: 1. Status post cholecystectomy. 2. No evidence of intra-or extra hepatic biliary duct dilatation. 3. No evidence of choledocholithiasis. 4. No acute process. Spike Loza MD Gall Bladder Ultrasound 07/12/17 0000 Signed Impressions: Service Date/Time: Wednesday, July 12, 2017 21:30 - CONCLUSION: 1. The common bile duct is at the upper range of normal in terms of caliber. Otherwise , unremarkable exam. Binu Navarro Jr., MD PE at Discharge GENERAL: AWAKE ALERT AND ORIENTED TALKATIVE AND COOPERATIVE SKIN: Warm and dry. MULTIPLE TATTOOS HEAD: Atraumatic. Normocephalic. EYES: Pupils equal and round. No scleral icterus. No injection or drainage. EOMI ENT: No nasal bleeding or discharge. Mucous membranes pink and moist. TONGUE MIDLINE NECK: Trachea midline. No JVD. SUPPLE CARDIOVASCULAR: Regular rate and rhythm. S1, S2 NO S3 OR S4 RESPIRATORY: No accessory muscle use. Clear to auscultation. Breath sounds equal bilaterally. GASTROINTESTINAL: Abdomen soft, non-tender, nondistended. Hepatic and splenic margins not palpable. OBESE MUSCULOSKELETAL: Extremities without clubbing, cyanosis, or edema. No obvious deformities. NEUROLOGICAL: Awake and alert. No obvious cranial nerve deficits. Motor grossly within normal limits. Five out of 5 muscle strength in the arms and legs. Normal speech. PSYCHIATRIC: Appropriate mood and affect; insight and judgment normal. Hospital Course 26-year-old female with no medical history presented to the ED with complaints of abdominal pain. Patient states the abdominal pain began today and is a 9 out of 10 sharp pain in her right upper quadrant that radiates to the back with associated vomiting. She states eating or drinking does make it worse, but the pain medicine that was given has helped. She denies any chest pain, shortness of breath, fever or chills 11-9 SEEN BY GI AND HAD MRCP IF LABS BETTER AND NO PAIN HOPEFULLY HOME TOMORROW DW RN AND PT SEEN WITH FEMALE RN GUN STOCKER IN THE ROOM AM LABS 11-10 if diet is tolerated dc to home NOT TAKING PAIN MEDS DC TO HOME AFTER LUNCH Pt Condition on Discharge: Good Discharge Disposition: Discharge Home Discharge Time: <= 30 minutes Discharge Instructions DIET: Follow Instructions for: Heart Healthy Diet Speech Therapy-Diet Recommends: Regular Activities you can perform: Regular-No Restrictions Follow up Referrals: Gastroenterology - 1 Week with Eusebia Lorenzo MD PCP Follow-up - 1 Week New Medications: Ondansetron (Zofran) 8 Mg Tab 8 MG PO TID for Nausea/Vomiting, #30 TAB 0 Refills Derrek Morrissey DO Jul 14, 2017 13:21
[2017-07-14 14:12] LABS: HEMOGLOBIN A1a 0.8 %; HEMOGLOBIN A1b 0.9 %; HEMOGLOBIN Ao 86.4 %; HEMOGLOBIN F 0.8 %; HEMOGLOBIN LA1C 1.8 %; HEMOGLOBIN P3 3.2 %
--- NOTE | 2017-07-14 14:13 | HHI.GIFU ---
Subjective Remarks Pt resting in bed, texting, asking to go home. Tolerating clears. NO pain or nausea. (Ginger Abbasi) Objective Vitals I&O Vital Signs Date Time Temp Pulse Resp B/P (MAP) Pulse Ox O2 Delivery O2 Flow Rate FiO2 07/14/17 11:54 99.5 73 16 133/100 (111) 99 07/14/17 08:06 99.0 64 16 116/72 (87) 99 07/14/17 03:35 98.3 72 17 129/74 (92) 99 07/14/17 00:13 98.5 67 16 91/55 (67) 99 07/13/17 21:17 98.5 63 17 100/64 (76) 97 07/13/17 16:18 97.1 75 24 108/64 (79) 98 Laboratory Laboratory Tests Test 07/14/17 06:30 White Blood Count 6.4 Red Blood Count 3.99 Hemoglobin 11.0 Hematocrit 33.0 Mean Corpuscular Volume 82.7 Mean Corpuscular Hemoglobin 27.6 Mean Corpuscular Hemoglobin Concent 33.3 Red Cell Distribution Width 14.6 Platelet Count 296 Mean Platelet Volume 8.5 Neutrophils (%) (Auto) 43.0 Lymphocytes (%) (Auto) 45.6 Monocytes (%) (Auto) 8.4 Eosinophils (%) (Auto) 2.5 Basophils (%) (Auto) 0.5 Neutrophils # (Auto) 2.7 Lymphocytes # (Auto) 2.9 Monocytes # (Auto) 0.5 Eosinophils # (Auto) 0.2 Basophils # (Auto) 0.0 CBC Comment DIFF FINAL Differential Comment Blood Urea Nitrogen 5 Creatinine 0.61 Random Glucose 94 Total Protein 7.1 Albumin 3.0 Calcium Level 8.3 Phosphorus Level 2.5 Magnesium Level 1.8 Alkaline Phosphatase 265 Aspartate Amino Transf (AST/SGOT) 192 Alanine Aminotransferase (ALT/SGPT) 232 Total Bilirubin 1.6 Sodium Level 139 Potassium Level 3.7 Chloride Level 106 Carbon Dioxide Level 23.8 Anion Gap 9 Estimat Glomerular Filtration Rate 145 Iron Level 97 Total Iron Binding Capacity 340 Percent Iron Saturation 28.5 Amylase Level 40 Lipase 85 Free Thyroxine 0.96 Thyroid Stimulating Hormone 3rd Gen 1.400 Anti-Nuclear Antibody Screen NEG Hepatitis A IgM Antibody NEGATIVE Hepatitis B Surface Antigen NEGATIVE Hepatitis B Core IgM Antibody NEGATIVE Hepatitis C Antibody NEGATIVE Physical Exam HEENT: PERRL; normocephalic; atraumatic; no jaundice. CHEST: CTA CARDIAC: RRR ABDOMEN: Soft, obese, nontender; no hepatosplenomegaly; bowel sounds are present in all four quadrants. EXTREMITIES: No clubbing, cyanosis, or edema. SKIN: Normal; no rash; no jaundice. 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 (Ginger Abbasi) Assessment and Plan Plan ASSESSMENT - Elev LFTs, abd pain - epigastric pain radiating to back, LFTs elevated obstructive pattern. US showed CBD dilated upper limits normal, pt is s/p cholecystectomy. Could have passed stone. MRCP neg. Asymptomatic today. Eating clears, wants to go home. hep panel negative. Tbil and AST improved but other LFTs did not. PLAN - rck LFTs in 3 days if d/c - await liver w/u - f/u with GI in one week - advance diet as tolerated - Supportive care This pt seen by myself and Dr Lorenzo and this note is written on his behalf. (Ginger Abbasi) Ginger Abbasi Jul 14, 2017 14:13 Eusebia Lorenzo MD Jul 14, 2017 18:49
[2017-07-14 16:57] VITALS: PULSE 63
[2017-07-18 23:53] LABS: MITOCHONDRIAL ABS 25.5 U (<=20.0)
== END 2017-07-14 17:16 | disposition home or self-care (01) ==
LOC: NEPD 17:23 → UNDOADMIN 21:00 → NEDA 21:00 → NEPGCP 22:19 → NEDA 22:19 → INTOOBSV 07-13 01:32 → NEDA 07-13 01:32 → NEPGCP 07-13 01:32
PROVIDERS: ADMIT Hospitalist; ATTEND Hospitalist
DX: K80.50 Calculus of bile duct without cholangitis or cholecystitis without obstruction (principal); R74.0 Nonspecific elevation of levels of transaminase and lactic acid dehydrogenase [LDH]; F12.90 Cannabis use, unspecified, uncomplicated
CPT/HCPCS: 74181; 76377; 76705; 80053; 80074; 81001; 82103; 82150; 82390; 83036; 83520; 83540; 83550; 83690; 83735; 84100; 84439; 84443; 84703; 85025; 86038; 86255; 96361; 96374; 96375; 96376; 99285; G0378; J2270; J2405; J7030

== ENCOUNTER 2017-09-18 11:34 | Emergency (ER) | payer MEDICAID ==
[~2017-09-18] VITALS: Ht 160 cm; Wt 125.0 kg
[~2017-09-18 11:34] MED LIST changes: -IBUP1TAB7 PO; +ZOFR8TAB PO
[2017-09-18 11:44] VITALS: BP 129/93; PULSE 84; RESP 16; TEMP 98.8; O2SAT 100
[2017-09-18] MEDS ORDERED: SODIUM CHLOR 0.9% 1000 ML INJ 1,000 ML IV SCH (11:53)
[2017-09-18] MEDS ORDERED: MORPHINE SULFATE 4 MG/ML INJ IV PUSH ONE (12:00)
[2017-09-18] MEDS ORDERED: ONDANSETRON HCL 4 MG/2 ML VIAL IVP ONE (12:00)
[2017-09-18] MEDS ORDERED: SODIUM CHLORIDE 0.9% FLUSH 10 ML FLUSH IV FLUSH PRN (12:00)
[2017-09-18 12:28] LABS: BASOPHIL % 0.5 % (0.0-2.0); EOSINOPHIL # 0.1 TH/MM3 (0-0.4); EOSINOPHIL % 0.7 % (0.0-4.0); HEMATOCRIT 34.8 % (35.0-46.0); HEMOGLOBIN 11.7 GM/DL (11.6-15.3); LYMPHOCYTE # 2.6 TH/MM3 (1.0-4.8); MEAN CELL VOLUME 83.4 FL (80.0-100.0); MEAN CORPUSCULAR HEMOGLOBIN 28.1 PG (27.0-34.0); MEAN CORPUSCULAR HGB CONC 33.7 % (32.0-36.0); MEAN PLATELET VOLUME 7.9 FL (7.0-11.0); MONO % 4.9 % (0.0-8.0); MONOCYTE # 0.4 TH/MM3 (0-0.9); NEUT % 61.9 % (16.0-70.0); PLATELET COUNT 360 TH/MM3 (150-450); RED BLOOD COUNT 4.17 MIL/MM3 (4.00-5.30); RED CELL DISTRIBUTION WIDTH 14.8 % (11.6-17.2); WHITE BLOOD COUNT 8.1 TH/MM3 (4.0-11.0)
--- NOTE | 2017-09-18 12:29 | PD ---
HPI Chief Complaint: Abdominal Pain Time Seen by Provider: 11:53 Travel History International Travel<30 days: No Contact w/Intl Traveler<30days: No Traveled to known affect area: No History of Present Illness HPI 27 year old female presents today with complaints of nausea vomiting and generalized abdominal pain. The patient states that it started last night. She states that she felt rumbling in her stomach and then shortly thereafter started experiencing the discomfort. She denies any fevers, chills. She denies any ill contacts. When asked if she could possibly be , patient stated she was not trying to get however it's possible. There is no reported diarrhea. There is no reported dysuria, urgency, frequency. As no reported vaginal discharge or bleeding. She was artery had her gallbladder out. She states that several months ago she was told that her liver enzymes were elevated and she required an admission to the hospital. He states she never followed up with anybody for that. PFSH Past Medical History Diminished Hearing: No Musculoskeletal: Yes (carpal tunnel) ?: Unknown Past Surgical History Cholecystectomy: Yes Oral Surgery: Yes (tonsilectomy) Tonsillectomy: Yes Social History Alcohol Use: Yes (SOCIALLY) Tobacco Use: No Substance Use: No Allergies-Medications (Allergen,Severity, Reaction): Coded Allergies: penicillin G (Unverified Allergy, Unknown, HIVES, 09/18/17) Reported Meds & Prescriptions Reported Meds & Active Scripts Active Plus Iron 29-1 mg ( Vit-Iron Carbonyl) 29 Mg Iron-1 Mg Tab 1 Tab PO DAILY Macrobid (Nitrofurantoin Monohydrate Macrocrystals) 100 Mg Capsule 100 Mg PO BID 7 Days Reglan (Metoclopramide HCl) 10 Mg Tab 10 Mg PO TIDAC Review of Systems Except as stated in HPI: all other systems reviewed are Neg General / Constitutional: No: Fever, Chills HENT: No: Headaches, Lightheadedness, Neck Pain Cardiovascular: No: Chest Pain or Discomfort, Palpitations Respiratory: No: Cough Gastrointestinal: Positive: Nausea, Vomiting, Abdominal Pain (crampy periumbilical), No: Diarrhea, Hematemesis, Hematochezia Genitourinary: No: Frequency, Dysuria, Pelvic Pain, Discharge, Vaginal Bleeding Musculoskeletal: No: Weakness, Pain Neurologic: No: Weakness, Dizziness, Headache Physical Exam Narrative GENERAL: Well developed well-nourished female in no acute respiratory distress. SKIN: Focused skin assessment warm/dry. HEAD: Atraumatic. Normocephalic. EYES: Pupils equal and round. No scleral icterus. No injection or drainage. ENT: No nasal bleeding or discharge. Mucous membranes pink and moist. NECK: Trachea midline. Supple. CARDIOVASCULAR: Regular rate and rhythm. No murmur appreciated. RESPIRATORY: No accessory muscle use. Clear to auscultation. Breath sounds equal bilaterally. GASTROINTESTINAL: Abdomen soft, obese, nondistended. Patient had subjective periumbilical discomfort. There is no rebound or guarding. There is no lower abdominal pain elicited on exam. MUSCULOSKELETAL: No obvious deformities. No clubbing. No cyanosis. No edema. NEUROLOGICAL: Awake and alert. No obvious cranial nerve deficits. Motor grossly within normal limits. Normal speech. Data Data Last Documented VS Vital Signs Date Time Temp Pulse Resp B/P (MAP) Pulse Ox O2 Delivery O2 Flow Rate FiO2 09/18/17 11:44 98.8 84 16 129/93 (105) 100 Orders Orders Complete Blood Count With Diff (09/18/17 11:53) Comprehensive Metabolic Panel (09/18/17 11:53) Lipase (09/18/17 11:53) Urinalysis - C+S If Indicated (09/18/17 11:53) Iv Access Insert/Monitor (09/18/17 11:53) Ecg Monitoring (09/18/17 11:53) Oximetry (09/18/17 11:53) Morphine Inj (Morphine Inj) (09/18/17 12:00) Ondansetron Inj (Zofran Inj) (09/18/17 12:00) Sodium Chlor 0.9% 1000 Ml Inj (Ns 1000 M (09/18/17 11:53) Sodium Chloride 0.9% Flush (Ns Flush) (09/18/17 12:00) Beta Hcg (Quant/Titer) (09/18/17 12:29) Labs Laboratory Tests Test 09/18/17 12:05 09/18/17 12:15 Urine Color YELLOW Urine Turbidity HAZY Urine pH 7.0 Urine Specific [place] 1.013 Urine Protein TRACE mg/dL Urine Glucose (UA) NEG mg/dL Urine Ketones 40 mg/dL Urine Occult Blood NEG Urine Nitrite NEG Urine Bilirubin NEG Urine Urobilinogen LESS THAN 2.0 MG/DL Urine Leukocyte Esterase LARGE Urine RBC LESS THAN 1 /hpf Urine WBC 1 /hpf Urine Squamous Epithelial Cells 8 /hpf Urine Bacteria OCC /hpf Urine Mucus FEW /lpf Microscopic Urinalysis Comment CULT NOT INDICATED White Blood Count 8.1 TH/MM3 Red Blood Count 4.17 MIL/MM3 Hemoglobin 11.7 GM/DL Hematocrit 34.8 % Mean Corpuscular Volume 83.4 FL Mean Corpuscular Hemoglobin 28.1 PG Mean Corpuscular Hemoglobin Concent 33.7 % Red Cell Distribution Width 14.8 % Platelet Count 360 TH/MM3 Mean Platelet Volume 7.9 FL Neutrophils (%) (Auto) 61.9 % Lymphocytes (%) (Auto) 32.0 % Monocytes (%) (Auto) 4.9 % Eosinophils (%) (Auto) 0.7 % Basophils (%) (Auto) 0.5 % Neutrophils # (Auto) 5.0 TH/MM3 Lymphocytes # (Auto) 2.6 TH/MM3 Monocytes # (Auto) 0.4 TH/MM3 Eosinophils # (Auto) 0.1 TH/MM3 Basophils # (Auto) 0.0 TH/MM3 CBC Comment DIFF FINAL Differential Comment Blood Urea Nitrogen 4 MG/DL Creatinine 0.46 MG/DL Random Glucose 95 MG/DL Total Protein 7.6 GM/DL Albumin 3.2 GM/DL Calcium Level 9.2 MG/DL Alkaline Phosphatase 79 U/L Aspartate Amino Transf (AST/SGOT) 22 U/L Alanine Aminotransferase (ALT/SGPT) 26 U/L Total Bilirubin 0.3 MG/DL Sodium Level 139 MEQ/L Potassium Level 3.9 MEQ/L Chloride Level 107 MEQ/L Carbon Dioxide Level 23.3 MEQ/L Anion Gap 9 MEQ/L Estimat Glomerular Filtration Rate 199 ML/MIN Lipase 92 U/L Human Chorionic Gonadotropin, Quant 88892 MIU/ML [facility] Medical Decision Making Medical Screen Exam Complete: Yes Emergency Medical Condition: Yes Differential Diagnosis Ectopic versus appendicitis versus diverticulitis versus gastroenteritis Narrative Course 27-year-old female who presents today with complaints of nausea vomiting starting last night. Patient also states that she feels crampy sensation in her periumbilical area. There is no rebound or guarding. Patient has no vaginal discharge or bleeding. Beta hCG was 72,000 after a positive urine . CBC and a electrolytes are within normal limits. Bedside ultrasound performed by this physician showed an intrauterine that was definitely at least 2 months old. There is good heart tones in the 160s. Good movement. Patient has leukocyte esterase in her urine. She' ll be treated with Macrobid 100 mg twice daily 7 days. She also be given a prescription for Reglan for the nausea vomiting. She'll also be given a prescription for vitamins pain she is instructed to follow up with an OB doctor. Diagnosis Primary Impression: Nausea & vomiting Additional Impressions: positive intrauterine probable early UTI Additional Instructions: Return if feeling worse. Return if vaginal bleeding, vaginal discharge, or any other reason that concerned her. Follow up with an OB doctor. Med/Other Pt SpecificInfo: Prescription(s) given Scripts Vit-Iron Carbonyl ( Plus Iron 29-1 mg) 29 Mg Iron-1 Mg Tab 1 TAB PO DAILY for Nutritional Supplement, #30 TAB 0 Refills Prov: Arnulfo Jerry MD 09/18/17 Nitrofurantoin Monohydrate Macrocrystals (Macrobid) 100 Mg Capsule 100 MG PO BID for Infection for 7 Days, #14 CAP 0 Refills Prov: Arnulfo Jerry MD 09/18/17 Metoclopramide (Reglan) 10 Mg Tab 10 MG PO TIDAC for Nausea, #30 TAB 0 Refills Prov: Arnulfo Jerry MD 09/18/17 Disposition: 01 DISCHARGE HOME Condition: Stable Arnulfo Jerry MD Sep 18, 2017 12:29
[2017-09-18 12:35] LABS: BACTERIA, URINE OCC /hpf; BILIRUBIN, URINE NEG (NEG); BLOOD, URINE NEG (NEG); GLUCOSE,URINE NEG (NEG); KETONE, URINE 40 mg/dL (NEG); MUCUS URINE FEW /lpf (OCC); NITRITE,URINE NEG (NEG); SQUAMOUS EPITHELIAL CELL URINE 8 /hpf (0-5); URINE COLOR YELLOW (YELLW/STRAW); URINE LEUKOCYTE ESTERASE LARGE (NEG)
[2017-09-18 12:43] LABS: ALBUMIN 3.2 GM/DL (3.4-5.0); ALT (GPT) 26 U/L (10-53); AST (GOT) 22 U/L (15-37); BICARBONATE 23.3 MEQ/L (21.0-32.0); BLOOD UREA NITROGEN 4 MG/DL (7-18); CALCIUM 9.2 MG/DL (8.5-10.1); CHLORIDE 107 MEQ/L (98-107); CREATININE 0.46 MG/DL (0.50-1.00); GLOMERULAR FILTRATION RATE 199 ML/MIN (>89); GLUCOSE,RANDOM 95 MG/DL (74-106); LIPASE 92 U/L (73-393); SODIUM (NA) 139 MEQ/L (136-145)
[2017-09-18 12:46] LABS: ALKALINE PHOSPHATASE 79 U/L (45-117); TOTAL BILIRUBIN ADULT 0.3 MG/DL (0.2-1.0); TOTAL PROTEIN 7.6 GM/DL (6.4-8.2)
[2017-09-18] MEDS ORDERED: REGL10TA5 PO (15:27)
[2017-09-18] MEDS ORDERED: MACR100C2 PO (15:27)
[2017-09-18] MEDS ORDERED: PREN29TA PO (15:27)
[2017-09-18 16:42] VITALS: BP 117/67
== END 2017-09-18 16:50 | disposition home or self-care (01) ==
LOC: NEPE 11:34
DX: O21.9 Vomiting of pregnancy, unspecified (principal); O26.899 Other specified pregnancy related conditions, unspecified trimester; R10.33 Periumbilical pain; R82.99 Other abnormal findings in urine; Z87.39 Personal history of other diseases of the musculoskeletal system and connective tissue; Z3A.00 Weeks of gestation of pregnancy not specified
CPT/HCPCS: 80053; 81001; 83690; 84702; 85025; 96374; 96375; 99285; J2270; J2405; J7030